=== PATIENT | male | born 1995 | race American Indian/Alaskan Native ===

== ENCOUNTER 2023-04-10 12:27 | Emergency (ER) | payer BC ==
[~2023-04-10] VITALS: Ht 172.7 cm; Wt 90.7 kg
[2023-04-10 12:30] VITALS: BP_SYST 146; PULSE 97; RESP 17; TEMP 98.2; O2SAT 99
[2023-04-10] MEDS ORDERED: BACITRACIN ZINC 15 GM TOPICAL OINTMENT TP ONE (13:30)
[2023-04-10] MEDS ORDERED: BACI15OI13 TP (14:10)
[2023-04-10] MEDS ORDERED: IBUP-1968 PO (14:10)
[2023-04-10] MEDS ORDERED: BACITRACIN 1 GM OINT TP ONE (14:30)
[2023-04-10] MEDS ORDERED: DIPHTH,PERTUSS(ACELL),TET VAC 0.5 ML VIAL (Tdap) I.M. ONE (14:45)
[2023-04-10 14:53] VITALS: BP_SYST 135; PULSE 84; RESP 18; TEMP 97.1; O2SAT 97
== END 2023-04-10 14:49 | disposition home or self-care (01) ==
LOC: SED 12:27
DX: S63.650A Sprain of metacarpophalangeal joint of right index finger, initial encounter (principal); S60.511A Abrasion of right hand, initial encounter; Z79.899 Other long term (current) drug therapy; W21.31XA Struck by shoe cleats, initial encounter; Y93.89 Activity, other specified; Y92.89 Other specified places as the place of occurrence of the external cause; Y99.8 Other external cause status
CPT/HCPCS: 90715; 99283